=== PATIENT | female | born 1950 | race Caucasian/White ===

== ENCOUNTER 2017-11-02 10:19 | Day surgery (SDC) | payer MEDICARE ==
[~2017-11-02] VITALS: Ht 157.5 cm; Wt 95.4 kg
[~2017-11-02 10:19] MED LIST: ENAL10TA PO; LEVO125T11 PO; PARO10OR3 PO; SIMV10TA6 PO; juice plus PO; tumeric PO
[2017-11-02 11:20] VITALS: BP 164/76
[2017-11-02] MEDS ORDERED: SODIUM CHLORIDE 0.9% 1000ML 1,000 ML IV ONE (11:53)
[2017-11-02] MEDS ORDERED: PROPOFOL 10 MG/ML 20ML VIAL IV ONE (12:27)
[2017-11-02 12:33] VITALS: BP 135/58
== END 2017-11-02 13:30 | disposition home or self-care (01) ==
LOC: DAH 10:19
PROVIDERS: ATTEND Surgery
DX: K21.9 Gastro-esophageal reflux disease without esophagitis (principal); K44.9 Diaphragmatic hernia without obstruction or gangrene; I10 Essential (primary) hypertension; E78.00 Pure hypercholesterolemia, unspecified; E07.9 Disorder of thyroid, unspecified; M54.5 Low back pain; Z90.710 Acquired absence of both cervix and uterus; Z98.890 Other specified postprocedural states; Z68.39 Body mass index [BMI] 39.0-39.9, adult
CPT/HCPCS: 43235; A4606; J2704; J7030

== ENCOUNTER → 2017-11-06 | Outpatient (CLI) | payer MEDICARE ==
[~2017-11-06] VITALS: Ht 7.6 cm; Wt 96.1 kg
[~2017-11-06] MED LIST changes: +ACET5SOL4 PO
== END | disposition home or self-care (01) ==
LOC: DTH 09:02
PROVIDERS: ATTEND Surgery
DX: E11.9 Type 2 diabetes mellitus without complications (principal); E66.09 Other obesity due to excess calories
CPT/HCPCS: 97802

== ENCOUNTER 2017-11-07 10:45 | Inpatient (IN) | payer MEDICARE ==
[~2017-11-07] VITALS: Ht 160 cm; Wt 95.7 kg
[~2017-11-07 10:45] MED LIST changes: -ACET5SOL4 PO; -juice plus PO; -tumeric PO
[2017-11-07 14:09] LABS: BASOPHILS % (AUTO) 0.2 % (0.0-5.0); EOSINOPHILS % (AUTO) 4.2 % (0.0-8.0); HEMATOCRIT 38.5 % (36-48); LYMPHOCYTES % (AUTO) 47.1 % (21.0-51.0); MEAN CORPUSCULAR HEMOGLOBIN 33.3 pg (27.0-33.0); MEAN CORPUSCULAR HGB CONC 34.4 g/dL (32.0-36.0); MONOCYTES % (AUTO) 9.8 % (3.0-13.0); NEUTROPHILS % (AUTO) 38.7 % (40.0-77.0); NUCLEATED RED BLOOD CELLS 0.1 % (0.0-0.19); PLATELET COUNT (AUTO) 251 K/uL (130-400); RED BLOOD CELL COUNT(AUTO) 3.97 MIL/uL (4.00-5.50); RED CELL DISTRIBUTION WIDTH 14.6 % (11.0-15.5); WHITE BLOOD COUNT (AUTO) 5.4 K/uL (4.8-10.8)
[2017-11-07 14:18] VITALS: BP 158/63
[2017-11-07 14:30] LABS: PARTIAL THROMBOPLASTIN TIME 25.7 SEC (26.3-35.5); PROTHROMBIN TIME 10.5 SEC (9.6-11.6)
[2017-11-07 14:31] LABS: CREATININE 0.8 mg/dL (0.5-1.5); POTASSIUM 4.2 mmol/L (3.5-5.1)
[2017-11-12] VITALS (23 sets, daily range): BP systolic 109–151; BP diastolic 56–78
[2017-11-12] MEDS ORDERED: WATER FOR INJECTION,STERILE 20 ML VIAL IJ ONE (08:00)
[2017-11-12] MEDS ORDERED: SODIUM CHLORIDE 0.9% 1000ML 1,000 ML IV ONE (08:04)
[2017-11-12] MEDS: CEFAZOLIN SODIUM 1 GM VIAL IVP ONE ×2 (08:31→10:35)
[2017-11-12] MEDS ORDERED: LIDOCAINE PF 2% 5ML ABBOJECT ONE (09:18)
[2017-11-12] MEDS ORDERED: DEXAMETHASONE SOD PHOSPHATE 10MG/ML 1ML VIAL ONE (09:18)
[2017-11-12] MEDS ORDERED: GLYCOPYRROLATE 0.2 MG/ML 5 ML VIAL ONE (09:18)
[2017-11-12] MEDS ORDERED: PROPOFOL 10 MG/ML 20ML VIAL IV ONE (09:20)
[2017-11-12] MEDS ORDERED: FENTANYL CITRATE PF 50 MCG/1 ML 2ML VIAL ONE ×3 (09:20→12:25)
[2017-11-12] MEDS ORDERED: MIDAZOLAM HCL 1 MG/ML 2ML VIAL ONE (09:20)
[2017-11-12] MEDS ORDERED: BUPIVACAINE/PF 0.5% 30ML VIAL ONE (11:29)
[2017-11-12] MEDS: POTASSIUM CHLORIDE 20 MEQ in DEXTROSE 5%-LACTATED RINGERS 1,000 ML IV SCH ×2 (11:31→19:36)
[2017-11-12] MEDS: LACTATED RINGERS 1000ML 1,000 ML IV SCH ×2 (11:32→20:30)
[2017-11-12] MEDS ORDERED: ONDANSETRON HCL 4 MG/2 ML VIAL IVP PRN (11:45)
[2017-11-12] MEDS ORDERED: SODIUM CHLORIDE 0.9% 10 ML VIAL IVP PRN (11:45)
[2017-11-12] MEDS ORDERED: MORPHINE SULFATE 5 MG/ML VIAL IVP PRN (11:45)
[2017-11-12] MEDS ORDERED: CEFAZOLIN 2GM / 50 ML 2 GM/50 ML BAG IV SCH (11:45)
[2017-11-12] MEDS ORDERED: MORPHINE SULFATE 4 MG/1ML SYG ONE (16:13)
[2017-11-12] MEDS: CEFAZOLIN SODIUM 1 GM VIAL IVP SCH ×2 (16:18→22:17)
[2017-11-12] MEDS: MORPHINE SULFATE 4 MG/1ML SYG IV PRN (20:28)
[2017-11-12] MEDS: ENOXAPARIN SODIUM 30 MG/0.3 ML SQ SCH (20:30)
[2017-11-12] MEDS ORDERED: FAMOTIDINE/PF 20 MG/2 ML VIAL IV SCH (21:00)
[2017-11-12] MEDS: PANTOPRAZOLE 40 MG/VIAL IVP SCH (22:17)
[2017-11-13] VITALS: BP 136/76
[2017-11-13] MEDS: POTASSIUM CHLORIDE 20 MEQ in DEXTROSE 5%-LACTATED RINGERS 1,000 ML IV SCH ×3 (03:41→19:51)
[2017-11-13] MEDS: LACTATED RINGERS 1000ML 1,000 ML IV SCH ×3 (03:44→21:58)
[2017-11-13 04:00] VITALS: BP 158/72
[2017-11-13 05:18] LABS: BASOPHILS % (AUTO) 0.1 % (0.0-5.0); HEMATOCRIT 32.7 % (36-48); LYMPHOCYTES % (AUTO) 11.4 % (21.0-51.0); MEAN CORPUSCULAR HEMOGLOBIN 34.3 pg (27.0-33.0); MEAN CORPUSCULAR HGB CONC 35.6 g/dL (32.0-36.0); MEAN CORPUSCULAR VOLUME 96.2 fL (79-99); MONOCYTES % (AUTO) 8.3 % (3.0-13.0); NEUTROPHILS % (AUTO) 80.2 % (40.0-77.0); PLATELET COUNT (AUTO) 244 K/uL (130-400); RED CELL DISTRIBUTION WIDTH 14.5 % (11.0-15.5); WHITE BLOOD COUNT (AUTO) 11.7 K/uL (4.8-10.8)
[2017-11-13 05:28] LABS: CREATININE 0.8 mg/dL (0.5-1.5); POTASSIUM 4.7 mmol/L (3.5-5.1)
[2017-11-13 07:48] VITALS: BP 132/89
[2017-11-13] MEDS: ENOXAPARIN SODIUM 30 MG/0.3 ML SQ SCH ×2 (08:14→20:48)
[2017-11-13] MEDS: MORPHINE SULFATE 4 MG/1ML SYG IV PRN ×2 (08:15→15:20)
[2017-11-13] MEDS ORDERED: DIATR MEGLU/DIATRIZOATE SODIUM 30 ML BOTTLE ONE ×2 (08:23→08:25)
[2017-11-13] MEDS: PANTOPRAZOLE 40 MG/VIAL IVP SCH (11:20)
[2017-11-13] MEDS ORDERED: ONDANSETRON HCL MDV 20ML 2 MG/ML VIAL IVP PRN (12:14)
[2017-11-13 16:00] VITALS: BP 161/78
[2017-11-13 19:35] VITALS: BP 156/70
[2017-11-13 23:40] VITALS: BP 153/78
[2017-11-14] MEDS: LACTATED RINGERS 1000ML 1,000 ML IV SCH (03:32)
[2017-11-14 03:55] VITALS: BP 159/84
[2017-11-14] MEDS: POTASSIUM CHLORIDE 20 MEQ in DEXTROSE 5%-LACTATED RINGERS 1,000 ML IV SCH (03:56)
[2017-11-14 07:50] VITALS: BP 156/76
[2017-11-14] MEDS: PANTOPRAZOLE 40 MG/VIAL IVP SCH (09:04)
[2017-11-14] MEDS: ENOXAPARIN SODIUM 30 MG/0.3 ML SQ SCH (09:05)
[2017-11-14 11:35] VITALS: BP 154/77
[2017-11-14 16:00] VITALS: BP 170/71
[2017-11-14] MEDS ORDERED: ENALAPRIL MALEATE 10 MG TABLET PO SCH (16:30)
[2017-11-14] MEDS ORDERED: ACET5SOL4 PO (17:51)
[2017-11-14 19:25] VITALS: BP 146/68
[2017-11-15] MEDS ORDERED: ENALAPRIL MALEATE 10 MG TABLET PO SCH (09:00)
== END 2017-11-14 19:30 | disposition home or self-care (01) | DRG 621 ==
LOC: DAHIP 11-12 07:21 → EDSTATUS 11-12 10:45 → 4BH 11-12 12:47
PROVIDERS: ADMIT Surgery; ATTEND Surgery
PROC: 0DB64Z3 Excision of Stomach, Percutaneous Endoscopic Approach, Vertical (ICD-10-PCS; principal; 2017-11-12 10:22)
PROC: 0BQT0ZZ Repair Diaphragm, Open Approach (ICD-10-PCS; 2017-11-12 10:22)
DX: E66.01 Morbid (severe) obesity due to excess calories (principal); E78.00 Pure hypercholesterolemia, unspecified; K44.9 Diaphragmatic hernia without obstruction or gangrene; I10 Essential (primary) hypertension; Z90.710 Acquired absence of both cervix and uterus; Z98.51 Tubal ligation status; Z80.9 Family history of malignant neoplasm, unspecified; Z68.37 Body mass index [BMI] 37.0-37.9, adult; Z82.49 Family history of ischemic heart disease and other diseases of the circulatory system; Z84.89 Family history of other specified conditions
CPT/HCPCS: 36415; 74240; 80048; 82948; 85025; 85610; 85730; 86850; 86900; 86901; 88307; 93005; A4218; C9113; J0690; J1100; J1650; J2001; J2250; J2270; J2704; J3010; J3480; J3490; J7030; J7120; Q9963

== ENCOUNTER → 2020-07-20 | Outpatient (CLI) | payer MEDICARE ==
[~2020-07-20] MED LIST changes: +ACET5SOL4 PO; -ENAL10TA PO; +ENAL10TA18 PO; -SIMV10TA6 PO; +SIMV10TA97 PO
== END | disposition home or self-care (01) ==
LOC: RAH 10:56
PROVIDERS: ATTEND Internal Medicine
DX: M47.814 Spondylosis without myelopathy or radiculopathy, thoracic region (principal); I10 Essential (primary) hypertension; R06.02 Shortness of breath
CPT/HCPCS: 71046

== ENCOUNTER → 2020-10-18 | Outpatient (CLI) | payer OTHER | END | disposition home or self-care (01) | LOC: RAH 13:36 | PROVIDERS: ATTEND Internal Medicine | DX: N60.01 Solitary cyst of right breast (principal); N64.89 Other specified disorders of breast | CPT/HCPCS: 76641; 77065 ==

== ENCOUNTER → 2022-10-03 | Outpatient (CLI) | payer OTHER | END | disposition home or self-care (01) | LOC: RAH 15:04 | PROVIDERS: ATTEND Internal Medicine | DX: Z12.31 Encounter for screening mammogram for malignant neoplasm of breast (principal) | CPT/HCPCS: 77067 ==

== ENCOUNTER → 2023-10-10 | Outpatient (CLI) | payer OTHER ==
[~2023-10-10] MED LIST changes: +ENAL-89 PO; -ENAL10TA18 PO
== END | disposition home or self-care (01) ==
LOC: RAH 10:34
PROVIDERS: ATTEND Internal Medicine
DX: Z12.31 Encounter for screening mammogram for malignant neoplasm of breast (principal)
CPT/HCPCS: 77067

== ENCOUNTER → 2024-07-17 | Outpatient (CLI) | payer OTHER ==
--- NOTE | 2024-07-17 16:30 | HMCIMG ---
CERV SPINE 4-5 VWS REASON: CERVICALGIA. COMPARISON: None TECHNIQUE: 8 images of cervical spine were obtained including oblique views. FINDINGS: There is straightening of normal lordotic cervical curvature which may be due to muscle spasm or positioning. Anterior osteophytes are seen. There are degenerative changes with cervical spine spondylosis. No loss of vertebral height is seen. IMPRESSION: DJD. No loss of vertebral height.
== END | disposition home or self-care (01) ==
LOC: RAH 11:36
PROVIDERS: ATTEND Internal Medicine
DX: M47.812 Spondylosis without myelopathy or radiculopathy, cervical region (principal); M50.30 Other cervical disc degeneration, unspecified cervical region; W19.XXXA Unspecified fall, initial encounter; Y93.89 Activity, other specified; Y92.89 Other specified places as the place of occurrence of the external cause; Y99.8 Other external cause status
CPT/HCPCS: 72050

== ENCOUNTER → 2024-10-13 | Outpatient (CLI) | payer OTHER ==
--- NOTE | 2024-10-13 10:35 | HMCIMG ---
MAMMO SCREENING BILATERAL HISTORY: Screening mammogram. COMPARISON: 10/13/2024 TECHNIQUE: Bilateral screening mammogram with CAD was performed with craniocaudal and mediolateral oblique projections. FINDINGS: There are scattered areas of fibroglandular density. There is no evidence of a dominant mass, or suspicious microcalcification. There is no evidence of nipple retraction or skin thickening. IMPRESSION: 1. Stable mammogram. Patient was entered into a reminder system with a target due date for their next mammogram. BI-RADS: CATEGORY 2: BENIGN FINDINGS Recommend monthly self breast exam as well as annual clinical examination. A negative x-ray should not delay biopsy if a dominant or clinically suspicious mass is present, since 8-10% of cancers are not identified by mammography. Dense breasts particularly, may obscure an underlying neoplasm. Some of these may be detected clinically and therefore, clinical examination is an essential part of breast evaluation.
== END | disposition home or self-care (01) ==
LOC: RAH 09:57
PROVIDERS: ATTEND Internal Medicine
DX: Z12.31 Encounter for screening mammogram for malignant neoplasm of breast (principal); R92.323 Mammographic fibroglandular density, bilateral breasts
CPT/HCPCS: 77067